=== PATIENT | male | born 1965 | race Caucasian/White ===

== ENCOUNTER 2020-05-19 18:36 | Emergency (ER) | payer SELFPAY ==
[2020-05-19 18:36] VITALS: BP 170/107; PULSE 105; RESP 18; TEMP 36.8; O2SAT 99; BMI 34.7
[2020-05-19 18:37] VITALS: BMI 34.7
--- NOTE | 2020-05-19 18:44 | ECG_ITS ---
APPROVED REPORT Exam: Resting ECG HR:104 bpm ECG Measurements Heart Rate 104 AXES SD 180 P -18 QRSd 160 QRS 69 QT 430 T 12 QTc 565 Conclusion Sinus tachycardia with occasional premature ventricular complexes Right bundle branch block Cannot rule out Inferior infarct, age undetermined Abnormal ECG Electronically signed by : Ariel Gomez, 05/20/2020 08:52:51
--- NOTE | 2020-05-19 18:49 | HMH.EDGENADL ---
ED Disposition Condition on Discharge: Good - Critical Care Critical Care Time: No <Candelario Vanessa - Last Filed: 05/19/20 19:57> <Radhames Weber - Last Filed: 05/19/20 21:49> Clinical Impression: Elevated troponin, Renal insufficiency, Hypertensive urgency Disposition: Home, Self-Care Instructions: Dizziness, Nonvertigo Additional Instructions: call pcp in am for follow up Referrals: PCP,No [Primary Care Provider] - Attestation: On 05/19/20, the high probability of a clinically significant, sudden or life threatening deterioration of the following system(s) required my full and direct attention, intervention and personal management. The time I documented below is in addition to time spent performing reported procedures but includes the following listed in this critical care notation. Medical Decision Making - Medical Records Medical records reviewed: Yes: I reviewed the patient's medical records. - Levon Inquiry Pt receiving controlled substance: No - Lab Data Lab results reviewed: Yes: I reviewed the patient's lab results. Result diagrams: 05/19/20 18:45 05/19/20 18:45 - ECG Data Tracing #1 ECG initial impression date: 05/19/20 ECG initial impression time: 18:48 <Candelario Vanessa - Last Filed: 05/19/20 19:57> - Lab Data Result diagrams: 05/19/20 18:45 05/19/20 18:45 <Radhames Weber - Last Filed: 05/19/20 21:49> Vital Signs: 05/19/20 18:36 05/19/20 19:00 05/19/20 19:30 Temperature 98.3 F Temperature Source Oral Pulse Rate [Right Radial] 105 H 104 H 98 H Respiratory Rate 18 17 17 Blood Pressure [Right Arm] 170/107 H 175/104 H 169/97 H Blood Pressure Mean [Right Arm] 128 127 121 Blood Pressure Source [Right Arm] Automatic Cuff Automatic Cuff Automatic Cuff Blood Pressure Position [Right Arm] Sitting Supine Supine 02 Sat by Pulse Oximetry 99 100 98 Oxygen Delivery Method Room Air Room Air Room Air 05/19/20 20:00 Temperature Temperature Source Pulse Rate [Right Radial] 98 H Respiratory Rate 17 Blood Pressure [Right Arm] 184/107 H Blood Pressure Mean [Right Arm] 132 Blood Pressure Source [Right Arm] Automatic Cuff Blood Pressure Position [Right Arm] Supine 02 Sat by Pulse Oximetry 98 Oxygen Delivery Method Room Air - Lab Data Lab Results 05/19/20 18:45: WBC 8.8, RBC 5.55, Hgb 15.2, Hct 47.1, MCV 84.8, MCH 27.3, MCHC 32.2, RDW 14.4, Plt Count 496 H, MPV 7.8, Neut % (Auto) 70.0, Lymph % (Auto) 21.3, [place] % (Auto) 6.8, Eos % (Auto) 1.2, Baso % (Auto) 0.7, Neut # (Auto) 6.2, Lymph # (Auto) 1.9, [place] # (Auto) 0.6, Eos # (Auto) 0.1, Baso # (Auto) 0.1 05/19/20 18:45: Sodium 136, Potassium 3.5, Chloride 101, Carbon Dioxide 25, Anion Gap 13.5, BUN 20, Creatinine 1.80 H, Estimated Creat Clear 79, Estimated GFR 39 L, Est GFR ( Amer) 47 L, Glucose 256 H, Calcium 9.7, Total Bilirubin 0.8, AST 29, ALT 21, Alkaline Phosphatase 144 H, Troponin I 0.04 H, Total Protein 8.4 H, Albumin 4.1, Globulin 4.3 H, Albumin/Globulin Ratio 1.0 L 05/19/20 21:08: Troponin I 0.03 Orders (Tests/Meds): ORDERS Category Date Time Status Troponin I Q3H Lab 05/20/20 00:45 Ordered - ECG Data Tracing #1 Sinus tachycardia 104 bpm, right bundle branch block with occasional PVC, no ST elevation or depression. Prolonged QTC. (Candelario Vanessa) Medical Decision Narrative: This is a pleasant, but anxious, male presenting for not feeling right after taking [facility] Patient is in no acute distress on initial evaluation. His blood pressure has improved from EMS his initial reading on the scene. Patient denies any significant chest pain or shortness of breath. Routine labs been collected. Patient has been monitored and his blood pressure has improved to the 160s over 90s. Discussed with the patient he would be allowed to go home. That his troponin resulted at 0.04, which is elevated per the range at this facility. Discussed results with the patient
[2020-05-19 19:00] VITALS: BP 175/104; PULSE 104; RESP 17; O2SAT 100
[2020-05-19 19:02] LABS: Basophils # 0.1 K/mm3 (0-0.2); Basophils % 0.7 % (0.1-2.0); Eosinophils # 0.1 K/mm3 (0.0-0.4); Eosinophils % 1.2 % (0.1-12.0); Hematocrit 47.1 % (42.0-52.0); Hemoglobin 15.2 g/dL (14.1-18.0); Lymphocytes # 1.9 K/mm3 (0.7-4.5); Lymphocytes % 21.3 % (10-50); Mean Corpuscular HGB Conc 32.2 g/dL (31.8-35.4); Mean Corpuscular Hemoglobin 27.3 pg (27.0-31.2); Mean Corpuscular Volume 84.8 fl (80-94); Mean Platelet Volume 7.8 fl (7.4-10.4); Monocytes # 0.6 K/mm3 (0.1-1.0); Monocytes % 6.8 % (1.7-9.3); Neutrophils # 6.2 K/mm3 (1.8-7.8); Platelet Count 496 K/mm3 (142-424); Red Blood Count 5.55 M/mm3 (4.60-6.20); Red Cell Distribution Width 14.4 % (11.5-17.5); White Blood Count 8.8 K/mm3 (4.8-10.8)
[2020-05-19 19:03] LABS: Chloride 101 mmol/L (98-107); Sodium 136 mmol/L (136-145)
[2020-05-19 19:04] LABS: Potassium 3.5 mmoL/L (3.5-5.1)
[2020-05-19 19:06] LABS: Alanine Aminotransferase 21 U/L (12-78); Alkaline Phosphatase 144 U/L (38-126); Aspartate Amino Transferase 29 U/L (17-59); Bilirubin,Total 0.8 mg/dl (0.2-1.3); Blood Urea Nitrogen 20 mg/dl (9-20); Creatinine Clearance Estimated 79 mL/min (50-200); Estimated Glomerular Filt Rate 39 ml/min (>60); GFR (African American) 47 ML/MIN (>60)
[2020-05-19 19:07] LABS: Albumin Level 4.1 g/dl (3.5-5.0); Anion Gap 13.5 mEq/L (5-15); Calcium 9.7 mg/dl (8.4-10.2); Carbon Dioxide 25 mmol/L (22.0-30.0); Globulin 4.3 g/dL (1.3-3.2); Glucose 256 mg/dl (74-100); Total Protein,Serum 8.4 g/dl (6.3-8.2)
[2020-05-19 19:19] LABS: Troponin I 0.04 ng/ml (0.00-0.034)
[2020-05-19 19:30] VITALS: BP 169/97; PULSE 98; RESP 17; O2SAT 98
--- NOTE | 2020-05-19 19:45 | PC.NURSE ---
called [facility] for medical records from his recent stay over the weekend. I spoke to RANDAL Urbano and he advised he will get them faxed over with in the next 20-30 mins.
[2020-05-19 20:00] VITALS: BP 184/107; PULSE 98; RESP 17; O2SAT 98
[2020-05-19 21:40] LABS: Troponin I 0.03 ng/ml (0.00-0.034)
[2020-05-19 21:52] VITALS: BP 166/75; PULSE 78; RESP 18; TEMP 36.8; O2SAT 99
== END 2020-05-19 22:07 | disposition home or self-care (01) ==
PROVIDERS: Emergency Provider Family Medicine
DX: I16.0 Hypertensive urgency (principal); N28.9 Disorder of kidney and ureter, unspecified; F41.9 Anxiety disorder, unspecified; Z79.899 Other long term (current) drug therapy
CPT/HCPCS: 80053; 84484; 85025; 93005; 99283

== ENCOUNTER 2021-02-14 14:26 | Inpatient (IN) | payer MEDICARE, OTHER, SELFPAY ==
[2021-02-14 15:44] VITALS: BMI 34.7
--- NOTE | 2021-02-14 15:45 | US_ITS ---
PROCEDURE: US TESTICULAR CLINICAL INDICATION: swollen scrotum COMPARISON: No exams were available for comparison FINDINGS: There is extensive bilateral scrotal wall edema. The right testicle is 4 x 3 x 3.5 cm. Left testicle is 3 x 4 x 3.6 cm. There is some heterogeneous echogenicity of the epididymis head on the right with some small epididymal cyst. No testicular mass evident. There is bilateral testicular blood flow. Heterogeneous echogenicity also present in the left epididymal head. There are small bilateral hydroceles. IMPRESSION: 1. Severe diffuse subcutaneous edema of the scrotum 2. Small bilateral hydroceles. No testicular mass. Bilateral testicular blood flow present. 3. Mildly prominent epididymi with heterogeneous echogenicity. This can be seen with chronic epididymitis. Small right-sided epididymal cyst Dictated by: Sami Harrison MD 02/14/2021 16:41 Sami Harrison MD in [place] 02/14/2021 16:41
[2021-02-14 16:44] VITALS: BP 149/93; PULSE 86; RESP 19; TEMP 36.6; O2SAT 99; BMI 34.7
--- NOTE | 2021-02-14 16:48 | HMH.EDUTC ---
[facility] [place] Clinical Impression: Scrotum swelling, GEMINI (acute kidney injury) Heart failure Qualifiers: Heart failure chronicity: acute Disposition: Still a Patient Condition on Discharge: Good Medical Decision Making - Levon Inquiry Pt receiving controlled substance: No Levon was queried for this patient: No Vital Signs: 02/14/21 16:44 02/14/21 16:50 02/14/21 17:12 Temperature 97.9 F 97.9 F Temperature Source Temporal Artery Scan Oral Pulse Rate 86 Pulse Rate [Right Radial] 86 99 H Respiratory Rate 19 19 18 Blood Pressure 149/93 H Blood Pressure [Right Arm] 149/93 H Blood Pressure Mean [Right Arm] 111 Blood Pressure Source Automatic Cuff Blood Pressure Source [Right Arm] Automatic Cuff Blood Pressure Position Sitting Blood Pressure Position [Right Arm] Sitting 02 Sat by Pulse Oximetry 99 100 Oxygen Delivery Method Room Air Room Air Room Air - Lab Data Lab Results 02/14/21 17:44: WBC 6.3, RBC 3.48 L, Hgb 9.5 L, Hct 29.8 L, MCV 85.7, MCH 27.3, MCHC 31.8, RDW 13.8, Plt Count 424, MPV 7.6, Neut % (Auto) 69.9, Lymph % (Auto) 20.8, [place] % (Auto) 6.0, Eos % (Auto) 2.7, Baso % (Auto) 0.6, Neut # (Auto) 4.4, Lymph # (Auto) 1.3, [place] # (Auto) 0.4, Eos # (Auto) 0.2, Baso # (Auto) 0.0 02/14/21 17:44: Sodium 138, Potassium 5.5 H, Chloride 109 H, Carbon Dioxide 23, Anion Gap 11.5, BUN 59 H, Creatinine 3.90 H, Estimated Creat Clear 36, Estimated GFR 16 L*, Est GFR ( Amer) 19 L*, Glucose 151 H, Calcium 8.4, Total Bilirubin 0.2, AST 37, ALT 19, Alkaline Phosphatase 147 H, Troponin I 0.02, C-Reactive Protein 30.7 H, NT-Pro-B Natriuret Pep 5830 H, Total Protein 6.5, Albumin 3.1 L, Globulin 3.4 H, Albumin/Globulin Ratio 0.9 L 02/14/21 18:56: SARS-CoV-2 (PCR) Not detected, Influenza A Untype (PCR) Not detected, Influenza Type B (PCR) Not detected Result diagrams: 02/14/21 17:44 02/14/21 17:44 Orders (Tests/Meds): ED MEDICATIONS Discontinued Medications Generic Name Dose Route Start Last Admin Trade Name Amado PRN Reason Stop Dose Admin Furosemide 40 mg 02/14/21 17:37 02/14/21 18:02 Furosemide 40mg/4ml Vial IV 02/14/21 17:38 40 mg ONCE ONE Administration ORDERS Category Date Time Status Troponin I Q3H Lab 02/14/21 20:45 Ordered Troponin I Q3H Lab 02/14/21 23:45 Ordered ECG Request by /Nse Stat Y 02/14/21 17:36 Ordered - US Data US Images: Other (Testicular ultrasound) ED US Reviewed: Yes: I have viewed radiologist's interpretation Findings Narrative: 1. Severe diffuse subcutaneous edema of the scrotum 2. Small bilateral hydroceles. No testicular mass. Bilateral testicular blood flow present. 3. Mildly prominent epididymi with heterogeneous echogenicity. This can be seen with chronic epididymitis. Small right-sided epididymal cyst Medical Decision Narrative: Discussed with patient and due to extent of swelling in his scrotum and bilateral edema in both upper legs recommended transfer to the ED Patient denies history and states that he has been having difficulty urinating at times recommended transfer to the ED for further work up and evaluation and he agreed Called ED spoke with Porsche Yost RN and she assigned him room 10 patient transferred via wheelchair [facility] [place] - General Stated complaint: enlarged scrotum Time Seen by Provider: 02/14/21 16:48 Mode of Arrival: Ambulatory Source of Information: Patient Description of Symptoms (Recalled from Triage Doc. by RN): swollen scrotum HEENT Symptoms (Recalled from RN notes): No Resp Symptoms (Recalled from RN notes): No Skin Symptoms (Recalled from RN notes): No MS Symptoms (Recalled from RN notes): No Functional Status (Recalled from RN notes): . - History of Present Illness Provider Complaint: Pateint state that he recently was in the hospital in [place] due to he had a small stroke States that he was in a hallway waiting on room due to the hospital being full and he had to have in and out
[2021-02-14 16:50] VITALS: BP 149/93; PULSE 86; RESP 19; TEMP 36.6; O2SAT 99
[2021-02-14 17:12] VITALS: PULSE 99; RESP 18; O2SAT 100; BMI 34.7
--- NOTE | 2021-02-14 17:36 | XR_ITS ---
PROCEDURE INFORMATION: Exam: XR Chest Exam date and time: 02/14/2021 5:36 PM Age: 55 years old Clinical indication: Dyspnea TECHNIQUE: Imaging protocol: XR of the chest. Portable AP exam 5:51 p.m. Views: 1 view. COMPARISON: No relevant prior studies available. FINDINGS: Lungs: Suboptimal evaluation of the lower lungs, the study was performed with apical lordotic positioning. The upper lungs appear normal. In the lower lungs, the medial right hemidiaphragm and most of the left hemidiaphragm are obscured, which may be due to basilar atelectasis or airspace disease. Lower left heart border is also obscured, which may be due to a large pericardial fat pad, versus airspace disease in the left lingula. Pleural spaces: No pneumothorax. No pleural effusion on the right. Left costophrenic angle is obscured, can't exclude some layering pleural fluid on the left. Heart/Mediastinum: Borderline cardiomegaly, cardiac silhouette is accentuated by film technique. Bones/joints: No acute fracture, as visualized. Soft tissues: No acute findings in the soft tissues. IMPRESSION: 1. No upper lung disease seen on this apical lordotic projection. 2. Hazy lower chest opacities obscuring the left diaphragm and lower left heart border, and obscuring the medial right diaphragm, which are nonspecific. This could be due to bilateral airspace disease/pneumonia, versus atelectasis, positional artifact, prominent left pericardial fat pad, layering left pleural fluid. Upright PA and lateral views would help for more accurate evaluation when the patient is able.
--- NOTE | 2021-02-14 17:52 | ECG_ITS ---
APPROVED REPORT Exam: Resting ECG HR:73 bpm ECG Measurements Heart Rate 73 AXES QRSd 150 QRS 37 QT 460 T 34 QTc 506 Conclusion Sinus rhythm with 2nd degree AV block (Mobitz I) Right bundle branch block Abnormal ECG Electronically signed by : Ariel Gomez MD 02/15/2021 12:16:10
[2021-02-14 17:53] LABS: Basophils % 0.6 % (0.1-2.0); Eosinophils # 0.2 K/mm3 (0.0-0.4); Eosinophils % 2.7 % (0.1-12.0); Hematocrit 29.8 % (42.0-52.0); Hemoglobin 9.5 g/dL (14.1-18.0); Lymphocytes # 1.3 K/mm3 (0.7-4.5); Lymphocytes % 20.8 % (10-50); Mean Corpuscular HGB Conc 31.8 g/dL (31.8-35.4); Mean Corpuscular Hemoglobin 27.3 pg (27.0-31.2); Mean Corpuscular Volume 85.7 fl (80-94); Mean Platelet Volume 7.6 fl (7.4-10.4); Monocytes # 0.4 K/mm3 (0.1-1.0); Neutrophils # 4.4 K/mm3 (1.8-7.8); Neutrophils % 69.9 % (37.0-80.0); Platelet Count 424 K/mm3 (142-424); Red Blood Count 3.48 M/mm3 (4.60-6.20); Red Cell Distribution Width 13.8 % (11.5-17.5); White Blood Count 6.3 K/mm3 (4.8-10.8)
--- NOTE | 2021-02-14 17:58 | HMH.EDGENADL ---
ED Disposition Clinical Impression: Scrotum swelling, GEMINI (acute kidney injury) Heart failure Qualifiers: Heart failure chronicity: acute Disposition: Still a Patient Condition on Discharge: Fair - Critical Care Critical Care Time: No Attestation: On 02/14/21, the high probability of a clinically significant, sudden or life threatening deterioration of the following system(s) required my full and direct attention, intervention and personal management. The time I documented below is in addition to time spent performing reported procedures but includes the following listed in this critical care notation. Medical Decision Making - Levon Inquiry Pt receiving controlled substance: No Vital Signs: 02/14/21 16:44 02/14/21 16:50 02/14/21 17:12 Temperature 97.9 F 97.9 F Temperature Source Temporal Artery Scan Oral Pulse Rate 86 Pulse Rate [Right Radial] 86 99 H Respiratory Rate 19 19 18 Blood Pressure 149/93 H Blood Pressure [Right Arm] 149/93 H Blood Pressure Mean [Right Arm] 111 Blood Pressure Source Automatic Cuff Blood Pressure Source [Right Arm] Automatic Cuff Blood Pressure Position Sitting Blood Pressure Position [Right Arm] Sitting 02 Sat by Pulse Oximetry 99 100 Oxygen Delivery Method Room Air Room Air Room Air - Lab Data Lab Results 02/14/21 17:44: WBC 6.3, RBC 3.48 L, Hgb 9.5 L, Hct 29.8 L, MCV 85.7, MCH 27.3, MCHC 31.8, RDW 13.8, Plt Count 424, MPV 7.6, Neut % (Auto) 69.9, Lymph % (Auto) 20.8, [place] % (Auto) 6.0, Eos % (Auto) 2.7, Baso % (Auto) 0.6, Neut # (Auto) 4.4, Lymph # (Auto) 1.3, [place] # (Auto) 0.4, Eos # (Auto) 0.2, Baso # (Auto) 0.0 02/14/21 17:44: Sodium 138, Potassium 5.5 H, Chloride 109 H, Carbon Dioxide 23, Anion Gap 11.5, BUN 59 H, Creatinine 3.90 H, Estimated Creat Clear 36, Estimated GFR 16 L*, Est GFR ( Amer) 19 L*, Glucose 151 H, Calcium 8.4, Total Bilirubin 0.2, AST 37, ALT 19, Alkaline Phosphatase 147 H, Troponin I 0.02, C-Reactive Protein 30.7 H, NT-Pro-B Natriuret Pep 5830 H, Total Protein 6.5, Albumin 3.1 L, Globulin 3.4 H, Albumin/Globulin Ratio 0.9 L 02/14/21 18:56: SARS-CoV-2 (PCR) Not detected, Influenza A Untype (PCR) Not detected, Influenza Type B (PCR) Not detected Result diagrams: 02/14/21 17:44 02/14/21 17:44 Orders (Tests/Meds): ED MEDICATIONS Discontinued Medications Generic Name Dose Route Start Last Admin Trade Name Freq PRN Reason Stop Dose Admin Furosemide 40 mg 02/14/21 17:37 02/14/21 18:02 Furosemide 40mg/4ml Vial IV 02/14/21 17:38 40 mg ONCE ONE Administration ORDERS Category Date Time Status Troponin I Q3H Lab 02/14/21 20:45 Ordered Troponin I Q3H Lab 02/14/21 23:45 Ordered ECG Request by /Nse Stat Y 02/14/21 17:36 Ordered Medical Decision Narrative: DDx includes but not limited to hernia, hydrocele, CHF exacerbation, acute renal insufficiency, electrolyte abnormality, arrhythmia, pneumonia. HDS, on RA, NAD. Diffuse BLE swelling. Diffuse scrotal swelling without significant erythema or tenderness, less likely acute infectious etiology. CRP elevated but wbc wnl. BNP elevated. Trop within normal limits but not less than lower limit of normal. EKG shows Mobitz 1 block, no STEMI. Patient given 40 mg IV furosemide in ED. CXR shows possible left pleural effusion. Creatinine 3.9, with GFR 16, which is an acute change. K 5.5, but without acute EKG changes correlating to this, does not require acute calcium infusion. Suspect patient's scrotal swelling (US scrotum done in [facility] without evidence of torsion) and BLE in setting of CHF and GEMINI. Plan to admit for cardiac monitoring, continued diuresis. General Adult HPI - General Chief complaint: Recheck/Abnormal Lab/Rx Stated complaint: enlarged scrotum Time Seen by Provider: 02/14/21 16:48 Mode of Arrival: Wheelchair Limitations: No Limitations Description of Symptoms (Recalled from ER Triage Doc. by RN): c/o swelling scrotum for a few days and the swel
[2021-02-14 18:00] LABS: Chloride 109 mmol/L (98-107); Potassium 5.5 mmoL/L (3.5-5.1); Sodium 138 mmol/L (136-145)
[2021-02-14 18:03] LABS: Alanine Aminotransferase 19 U/L (12-78); Albumin Level 3.1 g/dl (3.5-5.0); Albumin/Globulin Ratio 0.9 (1.1-1.8); Alkaline Phosphatase 147 U/L (38-126); Anion Gap 11.5 mEq/L (5-15); Aspartate Amino Transferase 37 U/L (17-59); Bilirubin,Total 0.2 mg/dl (0.2-1.3); Blood Urea Nitrogen 59 mg/dl (9-20); Carbon Dioxide 23 mmol/L (22.0-30.0); Creatinine Clearance Estimated 36 mL/min (50-200); Estimated Glomerular Filt Rate 16 ml/min (>60); GFR (African American) 19 ML/MIN (>60); Globulin 3.4 g/dL (1.3-3.2); Total Protein,Serum 6.5 g/dl (6.3-8.2)
[2021-02-14 18:04] LABS: Calcium 8.4 mg/dl (8.4-10.2); Glucose 151 mg/dl (74-100)
[2021-02-14 18:09] LABS: C-Reactive Protein 30.7 mg/L (0-4)
[2021-02-14 18:15] LABS: NT Pro Brain Natriuretic Pep. 5830 pg/mL (0-125)
[2021-02-14 18:18] LABS: Troponin I 0.02 ng/ml (0.00-0.034)
[2021-02-14 19:04] LABS: Coronavirus 19, PCR Not Detected (NotDetected); Influenza A, PCR Not Detected (NotDetected); Influenza B, PCR Not Detected (NotDetected)
[2021-02-14 19:21] VITALS: BMI 37.6
[2021-02-14 20:00] VITALS: O2SAT 99
[2021-02-14 21:07] VITALS: BP 170/92; PULSE 76; RESP 20; TEMP 36.3; O2SAT 99; BMI 37.6
--- NOTE | 2021-02-14 21:07 | PC.NURSE ---
PATIENT UP TO FLOOR VIA WHEELCHAIR @ THIS TIME.
[2021-02-14 21:08] LABS: Troponin I 0.02 ng/ml (0.00-0.034)
[2021-02-14 21:24] VITALS: PULSE 80
[2021-02-15] VITALS (8 sets, daily range): BP systolic 111–162; BP diastolic 57–98; PULSE 50–80; RESP 16–19; TEMP 36.6–36.8; O2SAT 96–100; BMI 37.6
[2021-02-15 00:20] LABS: Troponin I 0.02 ng/ml (0.00-0.034)
--- NOTE | 2021-02-15 07:30 | HMH.PHAVTE ---
[facility] Pharmacy VTE Monitoring - Patient Demographics Admission date: 02/14/21 Report Date: 02/15/21 Time: 07:30 Allergies/Adverse Reactions: Patient Allergies No Known Allergies Allergy (Verified 05/19/20 18:37) Height: 1.88 m Weight: 133.039 kg Patient Problems: Current Active Problems Scrotum swelling (Acute) GEMINI (acute kidney injury) (Acute) Heart failure (Acute) - VTE Risk Labs: VTE Related Lab Results Hgb 9.5 g/dL (14.1-18.0) L 02/14/21 17:44 Hct 29.8 % (42.0-52.0) L 02/14/21 17:44 Plt Count 424 K/mm3 (142-424) 02/14/21 17:44 BUN 59 mg/dl (9-20) H 02/14/21 17:44 Creatinine 3.90 mg/dl (0.66-1.25) H 02/14/21 17:44 Estimated Creat Clear 36 mL/min (50-200) 02/14/21 17:44 Was VTE Risk Assessment Performed: Yes VTE Risk Level: Very Low Risk Clinical Trial Participant: No - Prophylaxis VTE Prophylaxis Ordered?: Yes Types of VTE Prophylaxis: TEDS Knee High
[2021-02-15 07:37] LABS: Anion Gap 10.4 mEq/L (5-15); Blood Urea Nitrogen 53 mg/dl (9-20); Calcium 8.4 mg/dl (8.4-10.2); Carbon Dioxide 23 mmol/L (22.0-30.0); Chloride 111 mmol/L (98-107); Creatinine Clearance Estimated 40 mL/min (50-200); Estimated Glomerular Filt Rate 17 ml/min (>60); GFR (African American) 20 ML/MIN (>60); Glucose 98 mg/dl (74-100); Phosphorous 5.7 mg/dl (2.5-4.5); Potassium 5.4 mmoL/L (3.5-5.1); Sodium 139 mmol/L (136-145)
[2021-02-15 07:46] LABS: NT Pro Brain Natriuretic Pep. 6610 pg/mL (0-125)
--- NOTE | 2021-02-15 08:22 | HMH.PHAINT ---
Verified home medications with [facility] pharmacy and patient's home supply
[2021-02-15 08:51] LABS: Basophils % 0.9 % (0.1-2.0); Eosinophils # 0.3 K/mm3 (0.0-0.4); Eosinophils % 5.4 % (0.1-12.0); Hematocrit 27.3 % (42.0-52.0); Hemoglobin 8.8 g/dL (14.1-18.0); Lymphocytes # 1.4 K/mm3 (0.7-4.5); Lymphocytes % 27.3 % (10-50); Mean Corpuscular HGB Conc 32.1 g/dL (31.8-35.4); Mean Corpuscular Hemoglobin 27.6 pg (27.0-31.2); Mean Platelet Volume 8.5 fl (7.4-10.4); Monocytes # 0.4 K/mm3 (0.1-1.0); Monocytes % 8.5 % (1.7-9.3); Neutrophils # 2.9 K/mm3 (1.8-7.8); Platelet Count 432 K/mm3 (142-424); Red Blood Count 3.18 M/mm3 (4.60-6.20)
--- NOTE | 2021-02-15 09:50 | HMH.HP ---
*Admission Date: 02/14/21 *Chief complaint: Scrotal and leg edema *History of present illness: Mr. Mtz is a 55-year-old male with a history of diabetes mellitus, hypertension, coronary artery disease, atrial fibrillation, peripheral vascular disease and arterial disease. He was in [place] about a week ago visiting his mother at which time he was hospitalized after suffering a stroke. After discharge from the hospital he developed scrotal edema. During the hospitalization he states that they had difficulty with blood pressure control and meds where changed. He is also a diabetic and was recently started on insulin which has since controlled his blood sugars. He states he has no residual from his stroke. A MRI completed at that facility showed a small bleed. All test results are not available at this time. He is from [place] and his brother drove him from [place] to [place] and he arrived 02/12/2021. He did stop at a hospital in [place] who instructed him to return home and see his family physician for his scrotal edema. He then presented to urgent treatment center yesterday 02/14 due to ongoing swelling in the scrotum and the legs. From the urgent center he was sent to the ER for evaluation. He did receive 40 of Lasix after which he did diurese. Other than the leg and scrotal swelling he denies chest pain and shortness of breath. With assessment in the emergency room he had a testicular ultrasound which revealed the following following: IMPRESSION: 1. Severe diffuse subcutaneous edema of the scrotum 2. Small bilateral hydroceles. No testicular mass. Bilateral testicular blood flow present. 3. Mildly prominent epididymi with heterogeneous echogenicity. This can be seen with chronic epididymitis. Small right-sided epididymal cyst Chest x-ray completed showed the following: IMPRESSION: 1. No upper lung disease seen on this apical lordotic projection. 2. Hazy lower chest opacities obscuring the left diaphragm and lower left heart border, and obscuring the medial right diaphragm, which are nonspecific. This could be due to bilateral airspace disease/pneumonia, versus atelectasis, positional artifact, prominent left pericardial fat pad, layering left pleural fluid. Upright PA and lateral views would help for more accurate evaluation when the patient is able. Laboratory data on admission showed white blood cell count of 6300 with a hemoglobin of 9.5 hematocrit of 29.8 with a repeat this morning hemoglobin is 8.8 hematocrit 27.3 with a white blood cell count of 5000. Blood chemistries on admission show a sodium of 138 and a potassium of 5.5 and this a.m. sodium is 139 and potassium is 5.4. BUN on admission was 59 with a creatinine of 3.9 and this a.m. BUN is 53 and creatinine is 3.8. BNP is noted to be 5830 and is 6610 this morning. Troponin I is normal x3. Liver function studies showed normal AST and ALT and bilirubin. At the time of this visit for H&P patient is comfortable. He denies chest pain and shortness of breath. He states that his heart does skip beats that times. He has some scrotal discomfort with movement or pressure. Denies any abdominal pain. He has no respiratory symptoms. He has been voiding QS since admission. To note patient has been receiving the majority of his care from the [place]. He attends about every 6 months and has medicine refills. He does see a retinal specialist for his eyes. He plans to obtain a PCP here in [facility] History Medical History: Reports:: Anxiety, Atrial Fibrillation, Cardiomyopathy, Congestive Heart Failure, Coronary Artery Disease, Cerebrovascular Accident, Diabetes Mellitus Type 2, Gastroesophageal Reflux Disease(GERD), Hypertension, Palpitations, Peripheral Vascular Disease, Renal Insufficiency *Have you ever received a pneumonia vaccine?: No *Have you received a flu vaccine this season?: Yes Other Surgeries: Yes: Cardiac Catheterization, Coronary Stent - *Social H
--- NOTE | 2021-02-15 10:22 | CA_ITS ---
APPROVED REPORT Continuity Tester: Deanna Bullock RVT Study Quality: Adequate Indications: malignant htn Risk Factors Hypertension Obesity Diabetes Renal Artery Doppler Mid (R) 86.7/ cm/sec Distal (R) 105.9/ cm/sec Renal Aorta Ratio (R) 1.14 Segmental A. (R) 110.4/170.2 cm/sec RI: -0.54 Segmental A. Sup (R) 54.2/17.6 cm/sec Segmental A. Mid (R) 108.4/10.3 cm/sec Segmental A. Inf (R) 110.4/17.2 cm/sec Proximal (L) 88.6/ cm/sec Mid (L) 96.3/ cm/sec Distal (L) 117.5/ cm/sec Renal Aorta Ratio (L) 1.27 Segmental A. (L) 126.2/35.6 cm/sec RI: 0.71 Segmental A. Sup (L) 126.2/35.6 cm/sec Segmental A. Mid (L) 105.0/27.0 cm/sec Segmental A. Inf (L) 100.2/24.1 cm/sec Renal Measurements Kidney Size (R) 11.7x9.0 cm Cortical Thickness (R) 1.7 cm Kidney Size (L) 12.4x7.5 cm Cortical Thickness (L) 1.5 cm Findings Study suggests no evidence of stenosis of the bilateral renal arteries. Conclusion Study suggests no evidence of stenosis of the bilateral renal arteries. The proximal right renal artery was non-visualized r/t patient body habitus. Electronically signed by : Sami Harrison MD 02/16/2021 15:52:48
[2021-02-15 10:36] LABS: Iron 25 ug/dL (49-181)
--- NOTE | 2021-02-15 10:45 | HMH.CNCARD ---
History of Present Illness Consult date: 02/15/21 Requesting physician: Thomas Fountain Consult reason: congestive heart failure Chief complaint: edema in scrotum and legs History of present illness: This is a 55-year-old gentleman who was admitted to the hospital for scrotal and bilateral lower extremity edema. The patient reports that he was in a hospital in [facility] last week following a mild stroke. 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 The patient was discharged from the hospital and a few days later he had gradual onset of lower extremity edema and edema in his scrotum. He states that this progressed over the next 4 days. He reports that his mother wanted him to go back to the hospital in [place] but he decided to drive back to [place] to be admitted here since he lives in [place]. The patient states that the edema in his lower extremities and his scrotum progressively worsened over the last 4 days. He states that he does have some shortness of breath at times but this is mostly with exertion and he does not relate this to his edema. He denies any orthopnea. He states that he is able to lie flat in the bed without any difficulty. He denies any chest pain or pressure. He denies any fever, chills, nausea, vomiting, diarrhea. The patient does have some Brawny skin changes to his lower extremities in addition to his edema and a few open lacerations which he states he sustained doing yard work and he was treated with antibiotics for these. Of note the patient does have a history of coronary artery disease with stenting x2, carotid artery stenosis, hypertension, hyperlipidemia and diabetes. The patient reports while he was in the hospital last week his stroke was from hypertension and his blood pressure medications were adjusted. He states since having his medications adjusted his blood pressure has been running much better but his blood pressure is elevated here at the hospital. Nothing is helping to improve his edema. He states that this just continues to worsen every day. He states this is severe. [facility] History I have reviewed the patient's past medical history: Yes Medical History: Reports:: Anxiety, Atherosclerotic Heart Disease, Atrial Fibrillation, Cardiomyopathy, Congestive Heart Failure, Coronary Artery Disease, Cerebrovascular Accident, Diabetes Mellitus Type 2, Gastroesophageal Reflux Disease(GERD), Hyperlipidemia, Hypertension, Palpitations, Peripheral Vascular Disease, Renal Disease, Renal Insufficiency *Have you ever received a pneumonia vaccine?: No *Have you received a flu vaccine this season?: Yes Other Surgeries: Yes: Cardiac Catheterization, Coronary Stent - *Social History Smoking Status: Former smoker Alcohol Intake: former Substance Use Type: denies use *Occupational Status:: retired, disabled Housing: house Household Members: family *Travel in the last 8 weeks: Inside the [place] - Psychiatric History Pschychiatric History:: Reports:: Anxiety Family Hx:: No significant family history, Coronary Artery Disease, Diabetes Meds Home Medications Medication Instructions Recorded Confirmed Type Apixaban [Eliquis 5mg Tablet] 5 mg PO BID 05/19/20 02/14/21 History Aspirin 81 mg PO DAILY 05/19/20 02/14/21 History Furosemide [Furosemide 40MG tAB*] 40 mg PO DAILY 05/19/20 02/14/21 History glipiZIDE [Glucotrol 5mg tablet] 7.5 mg PO BID 05/19/20 02/14/21 History Doxazosin Mesylate [Doxazosin 2mg 4 mg PO BID 02/14/21 02/14/21 History Tab] Insulin NPH Hum/Reg Insulin Hm 15 unit SQ BID 02/14/21 02/14/21 History [Novolin 70-30 100 Unit/ml Vial] Metoprolol Tartrate 50 mg PO BID 02/14/21 02/14/21 History Pantoprazole Sodium 40 mg PO DAILY 02/14/21 02/14/21 History Atorvastatin Calcium [Lipitor 40mg 40 mg PO HS
[2021-02-15 11:08] LABS: Thyroid Stimulating Hormone 6.66 uIU/mL (0.465-4.68)
[2021-02-15 12:29] LABS: Vitamin B12 264 pg/mL (239-931)
--- NOTE | 2021-02-15 15:59 | HMH.CONS ---
*Admission Date: 02/14/21 *Reason for consult:: Scrotal swelling *History of present illness: Patient is a 55-year-old male referred for 1 week history of scrotal swelling. Patient has a history of diabetes and brawny lower extremity edema. His creatinine is also elevated to 3.8. He states he has had some recent lower extremity edema as well. He was in [place] recently and stated that a cardiac work-up fair was normal. Scrotal ultrasound yesterday reveals severe diffuse subcutaneous edema of the scrotum with small bilateral hydroceles. There is no evidence of testicular mass or torsion. Patient's white count is within normal limits. Patient's creatinine in April was 1.8. Patient's BNP is significantly elevated cardiac consult has been placed. Troponins are normal. Patient denies any flank pain, nausea, fever or chills. [facility] History Medical History: Reports:: Anxiety, Atherosclerotic Heart Disease, Atrial Fibrillation, Cardiomyopathy, Congestive Heart Failure, Coronary Artery Disease, Cerebrovascular Accident, Diabetes Mellitus Type 2, Gastroesophageal Reflux Disease(GERD), Hyperlipidemia, Hypertension, Palpitations, Peripheral Vascular Disease, Renal Disease, Renal Insufficiency *Have you ever received a pneumonia vaccine?: No *Have you received a flu vaccine this season?: Yes Other Surgeries: Yes: Cardiac Catheterization, Coronary Stent - *Social History Smoking Status: Former smoker Alcohol Intake: former Substance Use Type: denies use *Occupational Status:: retired, disabled Housing: house Household Members: family *Travel in the last 8 weeks: Inside the [facility] - Psychiatric History Pschychiatric History:: Reports:: Anxiety Family Hx:: No significant family history, Coronary Artery Disease, Diabetes Review of Systems - Review of Systems Review of systems:: pertinent systems reviewed and negative unless documented below - *Neurologic Reports abnormal walking (Due to PAD), Denies abnormal speech, Denies seizure-like activity, Denies unsteadiness, Denies dizziness, Denies headache(s) Meds Home Medications Medication Instructions Recorded Confirmed Type Apixaban [Eliquis 5mg Tablet] 5 mg PO BID 05/19/20 02/14/21 History Aspirin 81 mg PO DAILY 05/19/20 02/14/21 History Furosemide [Furosemide 40MG tAB*] 40 mg PO DAILY 05/19/20 02/14/21 History glipiZIDE [Glucotrol 5mg tablet] 7.5 mg PO BID 05/19/20 02/14/21 History Doxazosin Mesylate [Doxazosin 2mg 4 mg PO BID 02/14/21 02/14/21 History Tab] Insulin NPH Hum/Reg Insulin Hm 15 unit SQ BID 02/14/21 02/14/21 History [Novolin 70-30 100 Unit/ml Vial] Metoprolol Tartrate 50 mg PO BID 02/14/21 02/14/21 History Pantoprazole Sodium 40 mg PO DAILY 02/14/21 02/14/21 History Atorvastatin Calcium [Lipitor 40mg 40 mg PO HS 02/15/21 02/15/21 History Tab] Allergies Allergy/AdvReac Type Severity Reaction Status Date / Time No Known Allergies Allergy Verified 05/19/20 18:37 Exam Vital signs and Labs for Last 24 Hours: Temp Pulse Resp BP Pulse Ox 98.3 F 63 16 160/98 H 98 02/15/21 12:00 02/15/21 12:10 02/15/21 12:00 02/15/21 12:00 02/15/21 12:00 Laboratory Results - last 24 hr 02/14/21 17:44: WBC 6.3, RBC 3.48 L, Hgb 9.5 L, Hct 29.8 L, MCV 85.7, MCH 27.3, MCHC 31.8, RDW 13.8, Plt Count 424, MPV 7.6, Neut % (Auto) 69.9, Lymph % (Auto) 20.8, [place] % (Auto) 6.0, Eos % (Auto) 2.7, Baso % (Auto) 0.6, Neut # (Auto) 4.4, Lymph # (Auto) 1.3, [place] # (Auto) 0.4, Eos # (Auto) 0.2, Baso # (Auto) 0.0 02/14/21 17:44: Sodium 138, Potassium 5.5 H, Chloride 109 H, Carbon Dioxide 23, Anion Gap 11.5, BUN 59 H, Creatinine 3.90 H, Estimated Creat Clear 36, Estimated GFR 16 L*, Est GFR ( Amer) 19 L*, Glucose 151 H, Calcium 8.4, Total Bilirubin 0.2, AST 37, ALT 19, Alkaline Phosphatase 147 H, Troponin I 0.02, C-Reactive Protein 30.7 H, NT-Pro-B Natriuret Pep 5830 H, Total Protein 6.5, Albumin 3.1 L, Globulin 3.4 H, Albumin/Globulin Ratio 0.9 L 02/14/21 18:56:
--- NOTE | 2021-02-15 16:39 | PC.NURSE ---
Patient is NSR on the monitor and on room air. Patient is up ad-alexandr. Patient is alert and oriented times 4. Patient had an 8 beat run of v-tach today around 1419, patient asymptomatic. Patient stated that he was using the bathroom and strained to fart. ANN MARIE Toussaint with cardiology notified of the incident. Bed in lowest position and phone and call light in reach. Will continue to monitor.
[2021-02-15 17:05] LABS: POC Glucose,Bedside 232 (70-110)
[2021-02-16] VITALS: PULSE 60
[2021-02-16 00:24] VITALS: BP 153/83; PULSE 66; RESP 17; TEMP 36.3; O2SAT 99
[2021-02-16 04:00] VITALS: BP 170/98; PULSE 70; PULSE 73; RESP 19; TEMP 36.6; O2SAT 98
--- NOTE | 2021-02-16 04:41 | PC.NURSE ---
Patient has been asymptomatic with bradycardia all shift. Patient drops into the 30's at times and maintains there for a while. Patient does tend to bounce back up into the 70s when moving around the room. Patient has been sinus addy arrhythmia on telemetry. PCP and Cardiology where paged at the beginning of the shift due to the low heart rate and therefore his 2100 carvedilol was held. Patient has continued to diurese.
[2021-02-16 05:03] LABS: POC Glucose,Bedside 214 (70-110)
[2021-02-16 05:51] LABS: POC Glucose,Bedside 133 (70-110)
[2021-02-16 06:02] VITALS: BMI 36.9
[2021-02-16 07:16] LABS: Anion Gap 11.2 mEq/L (5-15); Blood Urea Nitrogen 53 mg/dl (9-20); Calcium 8.6 mg/dl (8.4-10.2); Carbon Dioxide 25 mmol/L (22.0-30.0); Chloride 107 mmol/L (98-107); Creatinine Clearance Estimated 37 mL/min (50-200); Estimated Glomerular Filt Rate 15 ml/min (>60); GFR (African American) 18 ML/MIN (>60); Glucose 118 mg/dl (74-100); Potassium 5.2 mmoL/L (3.5-5.1); Sodium 138 mmol/L (136-145)
[2021-02-16 08:00] VITALS: BP 127/70; PULSE 69; RESP 18; TEMP 37; O2SAT 98
[2021-02-16 08:13] LABS: PSA, Free 0.14 ng/mL; Prostate Specific Ag 0.2 ng/mL (0.0-4.0)
--- NOTE | 2021-02-16 09:03 | HMH.ACPN2 ---
Internal Medicine - PN: Subj *Date: 02/16/21 *Time: 09:03 Interval history: Patient states he is feeling a little bit better today. He still has a lot of scrotal edema but is urinating frequently. He denies any pain and states he slept well last night. Exam Vital signs and Labs for Last 24 Hours: Temp Pulse Resp BP Pulse Ox 98.6 F 69 18 127/70 98 02/16/21 08:00 02/16/21 08:00 02/16/21 08:00 02/16/21 08:00 02/16/21 08:00 Laboratory Results - last 24 hr 02/15/21 06:27: Prostate Specific Ag 0.2, Free PSA 0.14, % Free PSA 70.0 02/15/21 06:27: Iron 25 L, Vitamin B12 264, TSH 6.66 H 02/15/21 16:49: POC Glucose 232 H 02/15/21 20:07: POC Glucose 214 H 02/16/21 05:34: POC Glucose 133 H 02/16/21 06:12: Sodium 138, Potassium 5.2 H, Chloride 107, Carbon Dioxide 25, Anion Gap 11.2, BUN 53 H, Creatinine 4.10 H, Estimated Creat Clear 37, Estimated GFR 15 L*, Est GFR ( Amer) 18 L*, Glucose 118 H D, Calcium 8.6 I & O for Last 24 hours: Intake & Output 02/13/21 02/14/21 02/15/21 02/16/21 11:59 11:59 11:59 11:59 Intake Total 120 / 120 1200 / 1200 Output Total 1450 / 1450 1625 / 1625 Balance -1330 / -1330 -425 / -425 Weight 293 lb 4.8 oz 288 lb 2 oz - Constitutional no acute distress - *Routine Respiratory Exam Present: CTA bilaterally - *Routine Cardiovascular Exam Present: RRR - *Routine Abdominal Exam Present: soft, normoactive bowel sounds. Absent: tenderness - *Routine Exam Scrotal: Present: swelling (significant) - *Routine Extremities Exam Present: edema (Bilateral lower extremity edema present). Absent: cyanosis, clubbing - *Routine Skin Exam Present: warm. Absent: rash - *Routine Neurological Exam Present: alert, oriented X3 Assessment and Plan (1) CHF (congestive heart failure) Status: Acute Qualifiers: Heart failure type: right-sided Heart failure chronicity: acute on chronic Qualified Code(s): I50.813 - Acute on chronic right heart failure Category: Medical Code(s): I50.9 - Heart failure, unspecified (2) HTN (hypertension) Status: Acute Category: Medical Code(s): I10 - Essential (primary) hypertension (3) Diabetes mellitus Status: Acute Category: Medical Code(s): E11.9 - Type 2 diabetes mellitus without complications (4) PAD (peripheral artery disease) Status: Acute Category: Medical Code(s): I73.9 - Peripheral vascular disease, unspecified (5) CVA (cerebral vascular accident) Status: Acute Category: Medical Code(s): I63.9 - Cerebral infarction, unspecified (6) GEMINI (acute kidney injury) Status: Acute Category: Medical Code(s): N17.9 - Acute kidney failure, unspecified (7) Heart failure Status: Acute Qualifiers: Heart failure chronicity: acute Category: Medical Code(s): I50.9 - Heart failure, unspecified (8) Scrotum swelling Status: Acute Category: Medical Code(s): N50.89 - Other specified disorders of the male genital organs (9) Leg edema Status: Acute Category: Medical Code(s): R60.0 - Localized edema (10) CAD (coronary artery disease) Status: Chronic Category: Medical Code(s): I25.10 - Atherosclerotic heart disease of [place] coronary artery without angina pectoris (11) Atrial fibrillation Status: Acute Category: Medical Code(s): I48.91 - Unspecified atrial fibrillation (12) Carotid artery stenosis Status: Chronic Category: Medical Code(s): I65.29 - Occlusion and stenosis of unspecified carotid artery (13) Venous insufficiency Status: Chronic Category: Medical Code(s): I87.2 - Venous insufficiency (chronic) (peripheral) (14) CKD (chronic kidney disease) Status: Acute Category: Medical Code(s): N18.9 - Chronic kidney disease, unspecified - Assessment and plan all Dx Assessment and Plan for all problems:: Patient was seen by urology yesterday for his scrotal edema. Dr. Dorsey did not feel this was surgically correctable and re
--- NOTE | 2021-02-16 09:59 | HMH.PNCARD ---
Subjective Date: 02/16/21 Time: 08:30 Principal diagnosis: CHF, CKD Interval history: This is a 55-year-old gentleman who was admitted to the hospital with scrotal edema and bilateral lower extremity edema. The patient has been being diuresed for his CHF with little improvement in his lower extremity edema and scrotal edema. The patient's renal function continues to worsen. He denies any chest pain or pressure this morning. He reports shortness of breath with exertion at times. He denies any orthopnea. He denies any fever, chills, nausea, vomiting or diarrhea. His edema remains severe today. He does report urinating frequently and large amounts but his output was not recorded yesterday for unknown reasons. Exam Vital signs and Labs for Last 24 Hours: Temp Pulse Resp BP Pulse Ox 98.6 F 69 18 127/70 98 02/16/21 08:00 02/16/21 08:00 02/16/21 08:00 02/16/21 08:00 02/16/21 08:00 Laboratory Results - last 24 hr 02/15/21 06:27: Prostate Specific Ag 0.2, Free PSA 0.14, % Free PSA 70.0 02/15/21 06:27: Iron 25 L, Vitamin B12 264, TSH 6.66 H 02/15/21 16:49: POC Glucose 232 H 02/15/21 20:07: POC Glucose 214 H 02/16/21 05:34: POC Glucose 133 H 02/16/21 06:12: Sodium 138, Potassium 5.2 H, Chloride 107, Carbon Dioxide 25, Anion Gap 11.2, BUN 53 H, Creatinine 4.10 H, Estimated Creat Clear 37, Estimated GFR 15 L*, Est GFR ( Amer) 18 L*, Glucose 118 H D, Calcium 8.6 I & O for Last 24 hours: Intake & Output 02/13/21 02/14/21 02/15/21 02/16/21 23:59 23:59 23:59 23:59 Intake Total 480 / 480 840 / 840 Output Total 1450 / 1450 325 / 325 1300 / 1300 Balance -1450 / -1450 155 / 155 -460 / -460 Weight 293 lb 4.8 oz 293 lb 3.437 oz 288 lb 2 oz Narrative: Preliminary echocardiogram shows an ejection fraction greater than 55% with mild MR and mild TR. There is diastolic dysfunction. - Constitutional no acute distress, obese - *Routine HEENT Exam Head: Present: normocephalic, atraumatic Eye: Present: EOMI, PERRL ENT: Present: mucous membranes moist - *Routine Neck Exam Present: supple, full ROM, normal carotid upstroke. Absent: JVD, carotid bruit, lymphadenopathy - *Routine Respiratory Exam Present: CTA bilaterally - *Routine Cardiovascular Exam Present: RRR, Normal S1, Normal S2. Absent: murmur - *Routine Abdominal Exam Present: soft, normoactive bowel sounds. Absent: tenderness - *Routine Extremities Exam Present: edema (scrotum and BLEs), full ROM, pulses intact, normal capillary refill. Absent: cyanosis, clubbing - *Routine Skin Exam Present: warm, lesions, scars, cracked, ecchymosis. Absent: rash Comments: chronic brawny changes to BLEs - *Routine Neurological Exam Present: alert, oriented X3, CN II-XII intact. Absent: sensory deficit, motor deficit Progress Note: A&P (1) CHF (congestive heart failure) Status: Acute (2) HTN (hypertension) Status: Acute (3) Diabetes mellitus Status: Acute (4) PAD (peripheral artery disease) Status: Acute (5) CVA (cerebral vascular accident) Status: Acute (6) Heart failure Status: Acute (7) Scrotum swelling Status: Acute (8) Leg edema Status: Acute (9) CAD (coronary artery disease) Status: Chronic (10) Atrial fibrillation Status: Acute (11) Carotid artery stenosis Status: Chronic (12) Venous insufficiency Status: Chronic (13) CKD (chronic kidney disease) Status: Acute Assessment and Plan for All Diagnoses:: Plan: 1. The patient was admitted to the hospital with scrotal and bilateral lower extremity edema. The patient was found to have a BNP over 6000. He has anasarca. The patient is having an acute exacerbation of diastolic congestive heart failure. He has a preserved ejection fraction. We will continue with IV diuresis with Lasix 80 mg every 8 hours for his congestive heart failure. 2. Will add metolazone 5 mg p.o. twice daily for diuresis as well. The patient st
[2021-02-16 11:49] VITALS: BP 125/75; PULSE 70; RESP 18; TEMP 36.8; O2SAT 99
--- NOTE | 2021-02-16 15:37 | DIET.NUTRFU ---
PO intakes 100%, weight down 6# dt diureses, 2+ edema present, BG moderate-high avg. 175.
[2021-02-16 16:00] VITALS: BP 126/70; PULSE 68; RESP 20; TEMP 36.7; O2SAT 98
[2021-02-16 16:27] LABS: Microscopic, Urine URINE MICROSCOPIC (MICROSCOPIC)
[2021-02-16 16:33] LABS: Appearance,Urine CLEAR (Clear); Bilirubin,Urine Negative (Negative); Blood, Urine 1+ (Negative); Color,Urine YELLOW (Yellow); Glucose,Urine (UA) 1+ (Negative); Ketones,Urine Negative (Negative); Leukocyte Esterase,Urine Negative (Negative); Nitrate,Urine Negative (Negative); Protein,Urine 2+ (Negative); Urobilinogen,Urine 0.2 EU/dl (0.2)
[2021-02-16 16:49] LABS: Bacteria,Urine Trace /lpf; RBC,Urine Occasional #/hpf (0-3); Squamous Epithelial Cell,Urine Occasional #/hpf (0-5)
[2021-02-16 18:24] LABS: POC Glucose,Bedside 205 (70-110)
--- NOTE | 2021-02-16 18:54 | PC.NURSE ---
Patient is NSR on the monitor and on room air. Patient up ad-alexandr. Bed ready at the OR, report called at [phone].
--- NOTE | 2021-02-16 20:07 | PC.NURSE ---
PT WAS D/C VIA STRETCHER PER EMS TO DIFFERENT FACILITY @ 2005
--- NOTE | 2021-02-19 10:47 | HMH.DCSUM ---
General - General Admission date:: 02/14/21 Discharge date: 02/16/21 HPI HPI: Mr. Mtz is a 55-year-old male with a history of diabetes mellitus, hypertension, coronary artery disease, atrial fibrillation, peripheral vascular disease and arterial disease. He was in [place] about a week ago visiting his mother at which time he was hospitalized after suffering a stroke. After discharge from the hospital he developed scrotal edema. During the hospitalization he states that they had difficulty with blood pressure control and meds where changed. He is also a diabetic and was recently started on insulin which has since controlled his blood sugars. He states he has no residual from his stroke. A MRI completed at that facility showed a small bleed. All test results are not available at this time. He is from [place] and his brother drove him from [place] to [place] and he arrived 02/12/2021. He did stop at a hospital in [place] who instructed him to return home and see his family physician for his scrotal edema. He then presented to urgent treatment center yesterday 02/14 due to ongoing swelling in the scrotum and the legs. From the urgent center he was sent to the ER for evaluation. He did receive 40 of Lasix after which he did diurese. Other than the leg and scrotal swelling he denies chest pain and shortness of breath. With assessment in the emergency room he had a testicular ultrasound which revealed the following following: IMPRESSION: 1. Severe diffuse subcutaneous edema of the scrotum 2. Small bilateral hydroceles. No testicular mass. Bilateral testicular blood flow present. 3. Mildly prominent epididymi with heterogeneous echogenicity. This can be seen with chronic epididymitis. Small right-sided epididymal cyst Chest x-ray completed showed the following: IMPRESSION: 1. No upper lung disease seen on this apical lordotic projection. 2. Hazy lower chest opacities obscuring the left diaphragm and lower left heart border, and obscuring the medial right diaphragm, which are nonspecific. This could be due to bilateral airspace disease/pneumonia, versus atelectasis, positional artifact, prominent left pericardial fat pad, layering left pleural fluid. Upright PA and lateral views would help for more accurate evaluation when the patient is able. Laboratory data on admission showed white blood cell count of 6300 with a hemoglobin of 9.5 hematocrit of 29.8 with a repeat this morning hemoglobin is 8.8 hematocrit 27.3 with a white blood cell count of 5000. Blood chemistries on admission show a sodium of 138 and a potassium of 5.5 and this a.m. sodium is 139 and potassium is 5.4. BUN on admission was 59 with a creatinine of 3.9 and this a.m. BUN is 53 and creatinine is 3.8. BNP is noted to be 5830 and is 6610 this morning. Troponin I is normal x3. Liver function studies showed normal AST and ALT and bilirubin. At the time of this visit for H&P patient is comfortable. He denies chest pain and shortness of breath. He states that his heart does skip beats that times. He has some scrotal discomfort with movement or pressure. Denies any abdominal pain. He has no respiratory symptoms. He has been voiding QS since admission. To note patient has been receiving the majority of his care from the ID. He attends about every 6 months and has medicine refills. He does see a retinal specialist for his eyes. He plans to obtain a PCP here in [facility] Hospital Course: The patient was admitted and urology and cardiology were both consulted. He was restarted on most of his home medications and placed on sliding scale insulin. An echo and anemia studies were ordered. Cardiology saw the patient and ordered an echo as his BNP was elevated and he had anasarca consistent with congestive heart failure. They felt he would need aggressive diuresis and started him on Lasix 80 mg IV every 8 hours. He also had acute r
== END 2021-02-16 20:06 | DRG 682 ==
LOC: UTC 16:53 → ER 17:02 → 2ND 19:19
PROVIDERS: Nurse Practitioner Family; Admitting Provider Family Medicine; Emergency Provider Student in an Organized Health Care Education/Training Program; Visit Provider Family Medicine
DX: I13.11 Hypertensive heart and chronic kidney disease without heart failure, with stage 5 chronic kidney disease, or end stage renal disease (principal); I50.33 Acute on chronic diastolic (congestive) heart failure; N17.9 Acute kidney failure, unspecified; N18.5 Chronic kidney disease, stage 5; I42.9 Cardiomyopathy, unspecified; Z79.4 Long term (current) use of insulin; Z20.822 Contact with and (suspected) exposure to COVID-19; Z87.891 Personal history of nicotine dependence; E78.5 Hyperlipidemia, unspecified; E66.9 Obesity, unspecified; Z86.73 Personal history of transient ischemic attack (TIA), and cerebral infarction without residual deficits; I25.10 Atherosclerotic heart disease of native coronary artery without angina pectoris; I48.91 Unspecified atrial fibrillation; E11.51 Type 2 diabetes mellitus with diabetic peripheral angiopathy without gangrene; K21.9 Gastro-esophageal reflux disease without esophagitis; Z95.5 Presence of coronary angioplasty implant and graft; I65.23 Occlusion and stenosis of bilateral carotid arteries; I87.2 Venous insufficiency (chronic) (peripheral); E11.22 Type 2 diabetes mellitus with diabetic chronic kidney disease; Z68.37 Body mass index [BMI] 37.0-37.9, adult
CPT/HCPCS: 36415; 71045; 76870; 80048; 80053; 81001; 82607; 82962; 83540; 83880; 84100; 84153; 84154; 84443; 84484; 85025; 86140; 93005; 93306; 93976; 99282; C9803; U0003; U0005